=== PATIENT | male | born 1955 | race Caucasian/White ===

== ENCOUNTER → 2024-12-06 | Outpatient (CLI) | payer MEDICARE, BC, SELFPAY ==
[2024-12-06 08:56] LABS: Albumin, Serum 4.5 gm/dL (3.4-4.8); Anion Gap 7 (7-16); BUN/Creatinine Ratio 15 Ratio (12-20); Blood Urea Nitrogen 19 mg/dL (9-23); Calcium 9.7 mg/dL (8.3-10.6); Calcium (Corrected) 9.7 mg/dL (8.5-10.1); Carbon Dioxide 28.4 mMol/L (20.0-31.0); Chloride 105 mMol/L (98-107); Creatinine (Component) 1.3 mg/dL (0.6-1.3); Glucose 95 mg/dL (74-106); Osmolality,Calculated 281 (275-295); Phosphorous 3.1 mg/dL (2.4-5.1); Potassium 4.8 mMol/L (3.4-5.1); Sodium 140 mMol/L (136-145); eGFR 59 See Note
== END | disposition home or self-care (01) ==
LOC: COPL 06:51
PROVIDERS: PCP Nurse Practitioner Family; Referring Provider Internal Medicine Cardiovascular Disease; Visit Provider Internal Medicine Cardiovascular Disease
DX: E78.00 Pure hypercholesterolemia, unspecified (principal)
CPT/HCPCS: 36415; 80069

== ENCOUNTER → 2024-12-20 | Outpatient (CLI) | payer MEDICARE, BC, SELFPAY ==
[2024-12-20 08:48] LABS: Cardiac Risk Estimate 3.3 RATIO (4.0-6.7); Cholesterol 124 mg/dL (132-200); HDL Cholesterol 38 mg/dL (40-60); LDL Cholesterol,Calculated 72 mg/dL (0-130); Triglycerides 72 mg/dL (30-150)
== END | disposition home or self-care (01) ==
LOC: COPL 06:57
PROVIDERS: PCP Nurse Practitioner Family; Referring Provider Internal Medicine Cardiovascular Disease; Visit Provider Internal Medicine Cardiovascular Disease
DX: E78.00 Pure hypercholesterolemia, unspecified (principal)
CPT/HCPCS: 36415; 80061

== ENCOUNTER → 2025-08-21 | Outpatient (CLI) | payer MEDICARE, BC, SELFPAY ==
[2025-08-21 08:32] LABS: Basophils # (Auto) 0.1 Thou/mm3 (0.0-0.2); Basophils % (Auto) 1 % (0-2.5); Eosinophils # (Auto) 0.3 Thou/mm3 (0.0-0.5); Eosinophils % (Auto) 5 % (0-10); Hematocrit 42.5 % (41.0-53.0); Hemoglobin 14.2 g/dL (13.5-16.0); Immature Granulocytes Auto 0.02 Thou/mm3 (0.00-0.00); Lymphocytes # (Auto) 1.6 Thou/mm3 (1.0-4.8); Lymphocytes % (Auto) 29 % (10-50); Mean Corpuscular HGB Conc 33.4 g/dl (31.0-37.0); Mean Corpuscular Hemoglobin 30.5 pg (25.0-35.0); Mean Corpuscular Volume 91 fL (80-100); Monocytes # (Auto) 0.5 Thou/mm3 (0.0-0.8); Monocytes % (Auto) 9 % (0-12); Neutrophils # (Auto) 3.0 Thou/mm3 (1.8-7.7); Neutrophils % (Auto) 55 % (37-80); Nucleated Red Blood Cell # 0.00 Thou/mm3 (0.00-0.00); Nucleated Red Blood Cell % 0 /100 WBC (0); Platelet Count 195 Thou/mm3 (140-440); RDW Standard Deviation 43.1 fL (35.1-43.9); Red Blood Count 4.65 Miln/mm3 (4.50-5.90); White Blood Count 5.4 Thou/mm3 (3.8-10.6)
[2025-08-21 08:45] LABS: Collection Type, Urine Clean Catch; Squamous Epithelial Cell,Urine 0 /hpf (0-5)
[2025-08-21 08:45] LABS: Prostate Specific Antigen < 0.10 ng/mL (0-4.00)
[2025-08-21 08:48] LABS: Vitamin D 25 Hydroxy Total 51.8 ng/mL (7.3-40.2)
[2025-08-21 08:57] LABS: Alanine Aminotransferase 19 U/L (10-49); Albumin, Serum 4.3 gm/dL (3.4-4.8); Albumin/Globulin Ratio 1.9 (1.2-2.2); Alkaline Phosphatase 72 U/L (46-116); Anion Gap 9 (7-16); Aspartate Amino Transferase 22 U/L (0-34); BUN/Creatinine Ratio 13 Ratio (12-20); Bilirubin,Total 0.6 mg/dL (0.3-1.2); Blood Urea Nitrogen 18 mg/dL (9-23); Calcium 10.0 mg/dL (8.3-10.6); Calcium (Corrected) 10.0 mg/dL (8.5-10.1); Carbon Dioxide 27.1 mMol/L (20.0-31.0); Cardiac Risk Estimate 3.1 RATIO (4.0-6.7); Chloride 108 mMol/L (98-107); Cholesterol 132 mg/dL (132-200); Creatinine (Component) 1.4 mg/dL (0.6-1.3); Globulin 2.3 gm/dL (2.3-3.5); Glucose 99 mg/dL (74-106); HDL Cholesterol 42 mg/dL (40-60); LDL Cholesterol,Calculated 75 mg/dL (0-130); Osmolality,Calculated 288 (275-295); Potassium 5.0 mMol/L (3.4-5.1); Sodium 144 mMol/L (136-145); Thyroid Stimulating Hormone 1.67 uIU/mL (0.55-4.78); Total Protein 6.6 gm/dL (5.7-8.2); Triglycerides 76 mg/dL (30-150); eGFR 54 See Note
[2025-08-21 09:55] LABS: Creatinine MALB Rnd Ur 107 mg/dL (30-125); Microalbumin, Random Urine < 3 mg/L (0-300)
[2025-08-21 10:40] LABS: Bilirubin,Urine Negative (Negative); Blood,Urine Negative (Negative); Clarity,Urine Clear (Clear/Hazy); Color,Urine Lt-Yellow (Lt Yel-Yel); Culture Indicated,Urine Not Indicated; Glucose, Urine Negative (Negative); Ketones,Urine Negative (Negative); Leukocyte Esterase,Urine Negative (Negative); Nitrite,Urine Negative (Negative); PH,Urine 5.5 (5.0-7.0); Protein,Urine Negative (Neg - Trace); RBC,Urine 1 /hpf (0-3); Specific Gravity,Urine 1.019 (1.001-1.035); Urobilinogen,Urine Negative mg/dL (0.0-1.0); WBC,Urine < 1 /hpf (0-5)
== END | disposition home or self-care (01) ==
LOC: COPL 07:04
PROVIDERS: PCP Nurse Practitioner Family; Referring Provider Nurse Practitioner Family; Visit Provider Nurse Practitioner Family
DX: Z00.00 Encounter for general adult medical examination without abnormal findings (principal); I10 Essential (primary) hypertension; E55.9 Vitamin D deficiency, unspecified; Z12.5 Encounter for screening for malignant neoplasm of prostate; Z13.0 Encounter for screening for diseases of the blood and blood-forming organs and certain disorders involving the immune mechanism; Z12.31 Encounter for screening mammogram for malignant neoplasm of breast; Z13.220 Encounter for screening for lipoid disorders; Z13.1 Encounter for screening for diabetes mellitus; Z13.29 Encounter for screening for other suspected endocrine disorder; Z13.21 Encounter for screening for nutritional disorder
CPT/HCPCS: 36415; 80053; 80061; 81001; 82043; 82306; 82570; 84153; 84443; 85025

== ENCOUNTER → 2025-08-22 | Outpatient (CLI) | payer MEDICARE, BC, SELFPAY ==
[2025-08-26 07:19] LABS: Fecal Globin Result NOT DETECTED (NOT DETECTED)
== END | disposition home or self-care (01) ==
LOC: SLDO 08:09
PROVIDERS: Referring Provider Nurse Practitioner Family; Visit Provider Nurse Practitioner Family
DX: Z12.11 Encounter for screening for malignant neoplasm of colon (principal)
CPT/HCPCS: 82274; G0328

== ENCOUNTER → 2025-11-14 | Outpatient (CLI) | payer MEDICARE, BC, SELFPAY ==
--- NOTE | 2025-11-14 07:00 | XR_ITS ---
Examination: MRI right ankle without contrast Date and time of exam: November 14, 2025, 0750 hours INDICATIONS: Onset right-sided ankle pain and swelling paresthesias beginning 3 months ago, clinical diagnosis rupture of extensor tendons Technique: Multiple MRI axial and sagittal sections lumbar spine. Sagittal T2-weighted images, TR 3500, TE 118 T1 weighted transverse sections, TR 688 T8.5, T2-weighted sagittal sections T1 weighted sagittal sections TR 621, TE 30 T2 axial sections, TR 4, 190, TE 84. Findings: Biconvex thickening of the Achilles tendon Mild plantar fasciitis No occult fracture Increased signal in the medial malleolus, coronal image 18 Dome of the talus intact Anterior posterior inferior tibiofibular ligaments intact Moderate strain anterior talofibular ligament Extensor tendons intact Diffuse flexor tendinitis, most severe posterior tibial and flexor digitorum tendons Negative for sinus Tarsi syndrome IMPRESSION: Marrow edema bone contusion fibular tip Moderate strain anterior talofibular ligament No occult fracture Mild plantar fasciitis Achilles tendinosis Diffuse flexor tendinitis, most severe posterior tibial and flexor digitorum tendons
== END | disposition home or self-care (01) ==
PROVIDERS: PCP Nurse Practitioner Family; Referring Provider Orthopaedic Surgery; Visit Provider Orthopaedic Surgery
DX: S80.11XA Contusion of right lower leg, initial encounter (principal); S99.911A Unspecified injury of right ankle, initial encounter; X58.XXXA Exposure to other specified factors, initial encounter; M76.821 Posterior tibial tendinitis, right leg
CPT/HCPCS: 73721